=== PATIENT | female | born 1980 ===

== ENCOUNTER 2021-02-18 02:24 | Inpatient (IN) | payer BC, OTHER ==
[~2021-02-18] VITALS: Ht 157.5 cm; Wt 68.2 kg
[2021-02-18 02:30] VITALS: BP 144/82
[2021-02-18] MEDS ORDERED: LIDOCAINE 1%, 20ML ONE (03:05)
[2021-02-18] MEDS ORDERED: MISOPROSTOL 200 MCG TABLET ONE (03:05)
[2021-02-18] MEDS ORDERED: NEWBORN KIT ONE (03:05)
[2021-02-18] MEDS ORDERED: OXYTOCIN 30U/ 0.9% NaCL 500ML 500 ML ONE (03:06)
[2021-02-18] MEDS ORDERED: AMPICILLIN 2 GM in SODIUM CHLORIDE 0.9% 100 ML IVPB STA (03:17)
[2021-02-18] MEDS ORDERED: FENTANYL PF 100 MCG/2ML IVPush PRN (03:30)
[2021-02-18] MEDS ORDERED: OXYTOCIN 30U/ 0.9% NaCL 500ML 500 ML IV ONE (03:30)
[2021-02-18] MEDS ORDERED: TERBUTALINE 1 MG/ML, 1ML IVPush PRN (03:30)
[2021-02-18] MEDS ORDERED: LACTATED RINGERS 1,000 ML IV SCH (03:30)
[2021-02-18] MEDS ORDERED: FENTANYL PF 100 MCG/2ML IV PRN (03:30)
[2021-02-18] MEDS ORDERED: ONDANSETRON 2MG/ML, 2ML IVPush PRN (03:30)
[2021-02-18] MEDS ORDERED: TERBUTALINE 1 MG/ML, 1ML SQ PRN (03:30)
[2021-02-18 03:47] LABS: BASOPHILS % (AUTO) 1 % (0-1); EOSINOPHILS % (AUTO) 1 % (1-7); LYMPHOCYTES % (AUTO) 18 % (22-44); MEAN CORPUSCULAR HEMOGLOBIN 29.9 pg (27.0-34.8); MEAN CORPUSCULAR HGB CONC 33.7 g/dL (32.4-35.8); MEAN PLATELET VOLUME 10.7 fL (7.4-10.4); MONOCYTES % (AUTO) 6 % (2-9); NEUTROPHILS % (AUTO) 75 % (42-75); PLATELET COUNT 132 x10^3/uL (130-400); RED BLOOD COUNT 4.57 x10^6/uL (3.82-5.3); RED CELL DISTRIBUTION WIDTH 13.7 % (9.6-15.2)
[2021-02-18] MEDS ORDERED: PLEASE ENTER HEIGHT AND WEIGHT MC SCH (04:30)
[2021-02-18] MEDS ORDERED: PLEASE ENTER ALLERGIES MC SCH (04:30)
[2021-02-18] MEDS: AMPICILLIN 1 GM in SODIUM CHLORIDE 0.9% 100 ML IVPB SCH ×2 (07:30→11:09)
[2021-02-18] MEDS ORDERED: DIPH,PERTUSS(ACELL),TET VAC/PF NC IM-VACC PRN (13:30)
[2021-02-18] MEDS ORDERED: OXYTOCIN 30U/ 0.9% NaCL 500ML 500 ML IV SCH (13:30)
[2021-02-18] MEDS ORDERED: ONDANSETRON 2MG/ML, 2ML IV PRN (13:30)
[2021-02-18] MEDS ORDERED: METOCLOPRAMIDE 5 MG/ML, 2ML IV PRN (13:30)
[2021-02-18] MEDS ORDERED: ACETAMINOPHEN 325 MG TABLET PO PRN ×2 (13:30)
[2021-02-18] MEDS ORDERED: OXYcodone/APAP 5/325MG TABLET PO PRN ×2 (13:30)
[2021-02-18] MEDS ORDERED: RHOGAM FROM BLOOD BANK 1 NOTE EA IM/IV ONE (13:30)
[2021-02-18] MEDS ORDERED: SIMETHICONE 80 MG CHEW TAB PO PRN (13:30)
[2021-02-18] MEDS ORDERED: MISOPROSTOL 200 MCG TABLET PR PRN (13:30)
[2021-02-18 19:26] VITALS: BP 111/71
[2021-02-18 23:08] LABS: BASOPHILS % (AUTO) 0 % (0-1); EOSINOPHILS % (AUTO) 0 % (1-7); LYMPHOCYTES % (AUTO) 12 % (22-44); MEAN CORPUSCULAR HEMOGLOBIN 29.7 pg (27.0-34.8); MEAN CORPUSCULAR HGB CONC 33.6 g/dL (32.4-35.8); MEAN PLATELET VOLUME 11.3 fL (7.4-10.4); MONOCYTES % (AUTO) 4 % (2-9); NEUTROPHILS % (AUTO) 84 % (42-75); PLATELET COUNT 140 x10^3/uL (130-400); RED BLOOD COUNT 4.34 x10^6/uL (3.82-5.3); RED CELL DISTRIBUTION WIDTH 13.8 % (9.6-15.2)
[2021-02-19 00:40] VITALS: BP 113/70
[2021-02-19 04:47] VITALS: BP 121/76
[2021-02-19 07:25] VITALS: BP 122/76
[2021-02-19] MEDS: PRENATAL VIT/IRON/FA 1 EACH TABLET PO SCH (10:33)
[2021-02-19] MEDS: DOCUSATE 100 MG CAPSULE PO PRN (10:33)
[2021-02-19 12:22] VITALS: BP 115/73
[2021-02-19] MEDS: IBUPROFEN 600 MG TABLET PO PRN (12:28)
[2021-02-19 21:00] VITALS: BP 107/69
[2021-02-20] MEDS: IBUPROFEN 600 MG TABLET PO PRN ×2 (06:29→15:16)
[2021-02-20 09:30] VITALS: BP 116/70
[2021-02-20] MEDS: PRENATAL VIT/IRON/FA 1 EACH TABLET PO SCH (09:47)
[2021-02-20] MEDS: DOCUSATE 100 MG CAPSULE PO PRN (09:48)
[2021-02-20] MEDS ORDERED: PREN1TAB98 PO (10:53)
[2021-02-20] MEDS ORDERED: IBUP-1222 PO (10:55)
[2021-02-20] MEDS ORDERED: MEASLES,MUMPS&RUBELLA VACC/PF 0.5 ML SQ-VACC ONE (11:00)
== END 2021-02-20 15:30 | disposition home or self-care (01) | DRG 807 ==
LOC: LDOP 02:24 → LDIP 03:01 → 2NW 19:05
PROVIDERS: ADMIT Obstetrics & Gynecology; ATTEND Obstetrics & Gynecology
PROC: 10E0XZZ Delivery of Products of Conception, External Approach (ICD-10-PCS; principal; 2021-02-18)
PROC: 0KQM0ZZ Repair Perineum Muscle, Open Approach (ICD-10-PCS; 2021-02-18)
DX: O42.913 Preterm premature rupture of membranes, unspecified as to length of time between rupture and onset of labor, third trimester (principal); Z37.0 Single live birth; O99.824 Streptococcus B carrier state complicating childbirth; Z20.822 Contact with and (suspected) exposure to COVID-19; Z3A.35 35 weeks gestation of pregnancy; Z91.018 Allergy to other foods; O70.1 Second degree perineal laceration during delivery
CPT/HCPCS: 36415; 85025; 86592; 86803; 86850; 86900; 87635; 90707; 90715; G0378; J0290; J2590; J7120